=== PATIENT | female | born 1995 | race Caucasian/White ===

== ENCOUNTER 2017-05-24 18:29 | Emergency (ER) | payer OTHER ==
[2017-05-24] MEDS ORDERED: ONDANSETRON ODT 4 MG TAB.RAPDIS ONE (18:49)
--- NOTE | 2017-05-24 19:48 | ER PHYSICIAN DOCUMENTATION ---
Physician Documentation [facility] Name:Thomas Huerta Age:21 yrs Sex:Female :1995 Arrival Date:05/24/2017 Time:18:29 BedTrauma-B Private MD: Derek Aguilar Disposition: 05/24/17 19:40 Discharged to Home/Self Care. Impression: Syncope: Unknown Cause. - Condition is Good. - Discharge Instructions: SYNCOPE, Unk Cause. - Medical Reconciliation form form. - Follow up: Private Physician; When: As needed; Reason: Continuance of care. - Problem is new. - Symptoms have improved. HPI: 05/24 19:00 This 21 yrs old Female presents to ER via EMS with complaints of Fainting. jm 19:00 The patient has experienced syncope, collapsed, lost consciousness. Onset: The jm symptom(s)/episode began/occurred just prior to arrival. Duration: This was a single episode, that lasted 10 second(s). Context: the episode(s) was witnessed, by family, sister, by a friend, occurred while the patient was walking. Associated injury: The patient did not suffer any apparent associated injury. Associated signs and symptoms: The patient has no apparent associated signs or symptoms. The patient has experienced a previous episode. The patient has not recently seen a physician. Pt ate dinner and had a rea. She also had about 10mg of THC. [facility] then felt very nauseated and vomited her entire dinner. About 10 seconds later, she passed out for about 10 seconds. Currently, pt has no sx. She denies SOB/CP. . Historical: - Allergies: Demerol; - PMHx: SEIZURES; - Tetanus: < 10 years. - Ebola Screening: : Patient negative for fever greater than or equal to 101.5 degrees Fahrenheit, and additional compatible Ebola Virus Disease symptoms. Patient denies exposure to infectious person. Patient denies travel to an Ebola-affected area in the 21 days before illness onset. No symptoms or risks identified at this time. . - Immunization history: Flu Vaccine None. - Social history: Smoking status: Patient states was never smoker of tobacco. ROS: 19:00 Constitutional: Negative for fever. jm 19:00 Cardiovascular: Negative for chest pain, palpitations. 19:00 Respiratory: Negative for cough, shortness of breath. 19:00 Abdomen/GI: Positive for nausea, vomiting, Negative for abdominal pain, diarrhea. 19:00 Neuro: Positive for dizziness, syncope. Exam: 19:00 Constitutional: The patient appears alert, awake. 19:00 ENT: Mouth: is normal, Posterior pharynx: is normal. 19:00 Cardiovascular: Rate: normal, Rhythm: regular. 19:00 Cardiovascular: 19:00 Respiratory: Respirations: normal, Breath sounds: are normal. 19:00 Abdomen/GI: Bowel sounds: normal, Palpation: abdomen is soft and non-tender. 19:00 Neuro: Mentation: is normal, Memory: is normal, Cerebellar function: is grossly normal, Motor: is normal, Gait: is steady. 19:00 Psych: Behavior/mood is pleasant, cooperative, Affect is calm. Vital Signs: 18:34 BP 84 / 44; Pulse 83; Resp 18; Temp 98.7; Pulse Ox 92% on R/A; Weight 58.97 kg; Height bw2 5 ft. 3 in. (160.02 cm); 19:07 BP 101 / 64; Pulse 86; Resp 18; Pulse Ox 94% ; bw2 19:47 BP 101 / 60; Pulse 74; Resp 18; Pulse Ox 99% on R/A; bw2 18:34 Body Mass Index 23.03 (58.97 kg, 160.02 cm) bw2 Visual Acuity: 19:07 Left Eye Visual acuity 20/30, ; Right Eye Visual acuity 20/30, ; Both Eyes Visual bw2 acuity 20/20; Without Lenses; MDM: 18:47 Patient medically screened. 19:14 EKG attached sc1 20:00 Differential Diagnosis: cardiac arrhythmia, idiopathic syncope, vasovagal episode. Neurological re-evaluation: normal neurological exam including cranial nerves, orientation, mentation, motor and sensory exam, cerebellar testing, GCS normal, and normal gait. Data reviewed: vital signs, nurses notes, EKG, and as a result, I will discharge patient. Test interpretation: by ED physician or midlevel provider: ECG. Counseling: I had a detailed discussion with the patient and/or guardian regarding: the historical points, exam findings, and any diagnostic results supporting the discharge/admit diagnosis, the need for outpatient follow up, with the patient's primary care provider. ECG:. Response to treatment: the patient's symptoms have markedly improved after treatment. ED course: Pt much better after 1LNS. Pt walked w ease. . 05/24 18:54 Order name: EKG - 12 Lead; Complete Time: 18:54 bw2 05/24 18:56 Order name: Iv Saline Lock; Complete Time: 18:59 EC:00 Rhythm is regular. QRS [place] is Normal. MN interval is normal. QRS interval is normal. QT interval is normal. No Q waves. T waves are Normal. No ST changes noted. Dispensed Medications: 18:59 Drug: NS 0.9% 1000 ml; Route: IV; Rate: bolus; Site: left hand; 2 19:42 Follow up: IV Status: Completed infusion bw2 Signatures: Justine Brink RN RN sc1 Derek Perkins MD MD jm Wisely, Beth bw2
--- NOTE | 2017-05-24 19:48 | ER NURSING DOCUMENTATION ---
Nurse's Notes [facility] Name:Thomas Huerta Age:21 yrs Sex:Female :1995 Arrival Date:05/24/2017 Time:18:29 BedTrauma-B Private MD: Diagnosis:Syncope: Unknown Cause Presentation: 05/24 18:32 Presenting complaint: Patient states: pt states that while walking around she felt bw2 light headed and dizzy. pt states she vomited 3 times. pt states she now feels better. Transition of care: patient was not received from another setting of care. Care prior to arrival: IV initiated. gauge and site 20g left hand IV Fluids given by EMS NS 1000 ml. 18:32 Method Of Arrival: EMS bw2 18:32 Acuity: ELLEN 3 bw2 Triage Assessment: 18:34 General: Appears in no apparent distress, Behavior is anxious, appropriate for age. bw2 Pain: Denies pain. Historical: - Allergies: Demerol; - PMHx: SEIZURES; - Tetanus: < 10 years. - Ebola Screening: : Patient negative for fever greater than or equal to 101.5 degrees Fahrenheit, and additional compatible Ebola Virus Disease symptoms. Patient denies exposure to infectious person. Patient denies travel to an Ebola-affected area in the 21 days before illness onset. No symptoms or risks identified at this time. . - Immunization history: Flu Vaccine None. - Social history: Smoking status: Patient states was never smoker of tobacco. Screenin:35 Infectious Disease Risk None. Abuse screen: Denies threats or abuse. Nutritional bw2 screening: No deficits noted. Assessment: 18:35 See Triage Assessment done by same RN. Neuro: No deficits noted. bw2 Vital Signs: 18:34 BP 84 / 44; Pulse 83; Resp 18; Temp 98.7; Pulse Ox 92% on R/A; Weight 58.97 kg; Height bw2 5 ft. 3 in. (160.02 cm); 19:07 BP 101 / 64; Pulse 86; Resp 18; Pulse Ox 94% ; bw2 19:47 BP 101 / 60; Pulse 74; Resp 18; Pulse Ox 99% on R/A; bw2 18:34 Body Mass Index 23.03 (58.97 kg, 160.02 cm) bw2 Visual Acuity: 19:07 Left Eye Visual acuity 20/30, ; Right Eye Visual acuity 20/30, ; Both Eyes Visual bw2 acuity 20/20; Without Lenses; ED Course: 18:29 Patient arrived in ED. ma1 18:32 Jenny Ott is Primary Nurse. bw2 18:34 Triage completed. bw2 18:35 Valuables Remains with patient Patient has correct armband on for positive bw2 identification. Placed in gown. Side rails up X2. Cardiac Monitoring On for Nurse Monitoring only. Pulse Ox - RN Monitoring Only NIBP On - RN Monitoring Only. 18:36 Inserted peripheral IV: 20 gauge in left hand. bw2 18:47 Derek Perkins MD is Attending Physician. jaki 18:49 EKG done. (by ED staff). bw2 19:14 [place] [facility] [place] 19:40 T&C drawn. pt ambulated without assistance. pt denied feeling dizzy. bw2 Administered Medications: 18:59 Drug: NS 0.9% 1000 ml; Route: IV; Rate: bolus; Site: left hand; bw2 19:42 Follow up: IV Status: Completed infusion bw2 Outcome: 19:11 Discharged to home ambulatory. bw2 19:11 Condition: good 19:11 Discharge Assessment: Patient awake, alert and oriented x 3. No cognitive and/or functional deficits noted. Patient verbalized understanding of disposition instructions. 19:11 Discharge instructions given to patient, Instructed on follow up and referral plans. Incentive Spirometer wound care, Demonstrated understanding of instructions. 19:40 Discharge ordered by . jaki 19:48 Patient left the ED. 2 05/25 08:43 Discharge F/U Call: Unable to reach: no answer st Signatures: Rima Simpson RN RN Justine Jacobs RN RN sc1 Derek Perkins MD MD jm Wisely, Beth 2 Leydi Mata [facility]
== END 2017-05-24 19:48 | disposition home or self-care (01) ==
LOC: ER 18:29
DX: R55 Syncope and collapse (principal); R11.2 Nausea with vomiting, unspecified; R42 Dizziness and giddiness; E86.0 Dehydration; Z99.89 Dependence on other enabling machines and devices; Z74.3 Need for continuous supervision
CPT/HCPCS: 93005; 96360; 99284; A0425; A0429